=== PATIENT | male | born 1975 | race Caucasian/White ===

== ENCOUNTER 2023-11-24 02:42 | Emergency (ER) | payer OTHER, SELFPAY ==
[2023-11-24 02:42] VITALS: BP 175/106; PULSE 94; RESP 16; TEMP 36.6; O2SAT 99; BMI 27.3
--- NOTE | 2023-11-24 02:58 | ED.VIS.BACK ---
HPI History of Present Illness Chief Complaint: Back Informant: patient and EMS Narrative Narrative: Patient is brought in by EMS after a syncopal episode. Patient states for the past 4 to 5 days, he has been having pain in his left low back/hip/buttock area, radiating into his left thigh. It started gradually the day after he did a workout involving push-ups, pull-ups, sit ups. He has had some of this pain in the past but it has gotten gradually severe over the last several days, worse than it had been in the past when he did have it then. He states in the last couple days he has noticed that sitting is much worse than standing or walking. He denies any numbness or weakness in his legs. He has never had an MRI or other imaging for pain like this. Tonight the pain was severe, he was starting to sweat while he was lying in bed because it was hurting so bad despite taking some Tylenol, so he got up to splash some water on his face because of the sweating, he started feeling lightheaded and passed out onto the floor without injury. His was scared and called 911, so now he is here. He denies having any prodromal symptoms other than lightheadedness; no abdominal pain, chest pain, shortness of breath, headache, or focal neurologic symptoms. He states his pre-existing back, hip, thigh pain and is there now as it was before and he feels okay otherwise. He also states in the last several days he has had small amounts of bright red blood per rectum at the end of bowel movements without any abdominal discomfort or rectal pain or feeling of an obvious hemorrhoid although he has had those in the past that is because of bleeding like this. For that he is and he avoided taking ibuprofen tonight. [facility] Medical History no medical history no medical history Home Medications esomeprazole magnesium 20 mg capsule,delayed release (Nexium) 20 mg PO DAILY 11/24/23 [History Last Taken Unknown] hydrocodone-acetaminophen 5-325mg 5mg-325mg 1 tab PO Q6H PRN PRN Pain 3 days #10 TABLETS 11/24/23 [Rx Last Taken Unknown] prednisone 20 mg tablet 40 mg (2 x 20 mg) PO DAILY #10 TABLETS 11/24/23 [Rx Last Taken Unknown] Allergy/AdvReac Type Severity Reaction Status Date / Time No Known Allergies Allergy Verified 11/24/23 02:56 Social History Smoking Status: Never smoker ROS ROS ED Constitutional Constitutional ED: Denies chills, fever(s) or sweats Eyes Eyes: Denies change in vision or diplopia ENT ENT ED: Denies rhinorrhea or sore throat Cardiovascular Cardiovascular: Reports lightheadedness and syncope; Denies chest pain, palpitations or racing heartbeat Respiratory/Chest Respiratory/Chest: Denies dyspnea or dyspnea on exertion Gastrointestinal Gastrointestinal: Reports hematochezia; Denies abdominal pain, constipation, fecal incontinence, melena, nausea or vomiting Genitourinary Genitourinary ED: Reports other Details: no urinary retention ; Denies abdominal discomfort or urinary incontinence Musculoskeletal Musculoskeletal: Reports as per HPI and back pain; Denies neck pain Integumentary Denies rash or wounds Neurologic Neurologic: Denies headache(s), paresthesias or weakness EXAM Physical Exam Const Vital Signs: 11/24/23 02:42 Temperature 97.8 F Temperature Source Temporal Pulse Rate 94 Respiratory Rate 16 Blood Pressure 175/106 H Blood Pressure Mean 129 Pulse Ox 99 Oxygen Delivery Method Room Air Positive well nourished and well developed Constitutional Narrative: Well-appearing in no distress General Appearance ED: well developed and NAD HEENT Reports moist mucous membranes Negative for trauma or tenderness Eyes PERRL and EOMs intact bilaterally Neck full ROM and supple Resp normal respiratory effort and clear to auscultation bilaterally Cardio regular rate and regular rhythm Rate: Negative for tachycardic GI normal to inspection, nondistended, normoactive bowel sounds, soft to palpation and non-tender Back/Spine normal to inspection Back/Spine Narrative: No midline or paraspinal back tenderness but he is tender in the area of the sciatic notch/piriformis on the left only. Left lower extremity ipsilateral straight leg raise is equivocal, causing pain to about the knee. Cross leg straight leg raise is negative. General Back: Negative for CVA tenderness Lumbar Spine / Lower Back: Negative for lumbar spinal tenderness Extremity normal to inspection, full ROM and no pedal edema Neuro oriented x3 and no sensory deficits noted Sensorium / Orientation: alert Motor Exam: strength 5/5 throughout and clonus absent Deep Tendon Reflexes: Rt Patellar (L4): 2+, Lt Patellar (L4): 2+, Rt Ankle (S1): 2+ and Lt Ankle (S1): 2+ Deep Tendon Reflexes Back: Rt Patellar (L4): 2+, Lt Patellar (L4): 2+, Rt Ankle (S1): 2+ and Lt Ankle (S1): 2+ Plantar Reflex: Downgoing: bilateral Psych mental status grossly normal and thought process normal Skin no rashes or lesions noted and no wounds MDM MDM MDM Narrative Medical decision making narrative: Given the syncopal episode an EKG was obtained and it is normal on my interpretation. Given the recent minor rectal bleeding he describes, we obtained some labs including CBC and BMP to evaluate for the possibility of anemia and/or GI bleeding that could have been linked to the syncopal episode, those are normal as well. He has not been constipated or straining lately, but he has had small hemorrhoids in the past that have caused bleeding like he experienced which is compatible with hemorrhoids, internal or external. He also states he has had a prior syncopal episode preceded by lightheadedness and no other prodromal symptoms. This sounds more like a vagal episode to me, probably caused by the pain he was having and he is in agreement. I think this is a relatively low risk syncope. He is not tachycardic, or hypoxemic, nor does he of signs or symptoms of a DVT, so I do not think he needs to be evaluated further for PE here. Furthermore his PERC score is 0 ruling that out. No emergent radiography is indicated given that he has no bony tenderness or midline pain. A disc due to his exercising several days ago could have been bulging or a torn annulus, or other reason for sciatica in his lumbar spine, piriformis syndrome or other musculoskeletal etiologies such as SI dysfunction are also in the differential diagnosis. I think it would be reasonable to treat his pain here which we did and put him on a short course of steroids and follow-up with his doctor is comfortable with that plan and ambulatory without symptoms here. arrived later and had a lot of questions which I answered at the bedside, and also added that he had some shaking right after passing out and hitting the floor that she witnessed, and then he woke up short time afterwards. Sounds like his arms were shaking. It sounds more like myoclonic jerking related to a syncopal episode rather than a seizure. There was no postictal period. We talked about that at length. He has no history of seizures. Furthermore when he had a syncopal episode several years ago, that was dubbed as a likely vasovagal reaction as well. 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 At this time he has no signs or symptoms of Lyme carditis and this syncopal episode did not occur totally randomly, he had prodromal severe pain which I think was related which I explained to them. I do recommend following up and if he was supposed to have an outpatient echocardiogram he should probably still have that done. Also, I offered a prescription for Proctofoam HC if he wanted to try to treat internal hemorrhoids empirically but he declines at this time and states he will see how this goes as he has had this before. Lab Data Attestation: I reviewed the patient's lab results. Labs: Laboratory Results - last 24 hr 11/24/23 03:15 WBC 7.3 RBC 4.92 Hgb 14.7 Hct 45.5 MCV 92.5 MCH 29.9 MCHC 32.3 RDW Std Deviation 41.8 RDW Coeff of Lynnette 12.1 Plt Count 233 MPV 10.1 Immature Gran % (Auto) 0.100 Neut % (Auto) 59.0 Lymph % (Auto) 30.3 Garrard % (Auto) 8.6 Eos % (Auto) 1.2 Baso % (Auto) 0.8 Absolute Neuts (auto) 4.3 Absolute Lymphs (auto) 2.20 Nucleated RBC % 0 Sodium 140 Potassium 3.6 Chloride 105 Carbon Dioxide 28.0 Anion Gap 7 BUN 22 H Creatinine 0.97 Estim Creat Clear Calc 108.28 Est GFR (MDRD) Af Amer 106 Est GFR (MDRD) Non-Af 88 BUN/Creatinine Ratio 22.7 H Glucose 129 H Calcium 8.7 Rhythm Strip Rhythm Strip: Sinus Rhythm Rate: 90 Ectopy: None EKG Initial EKG: Attestation: I personally reviewed and interpreted this EKG as follows: Interpretation: Sinus Rhythm and No Acute Injury Pattern Comments: Normal EKG Discharge Plan Triage Chief Complaint: Back ED Provider: Jonathan Reddy Dx/Rx/DC Orders Clinical Impression: Vasovagal syncope, Acute left-sided back pain with sciatica, Rectal bleeding Instructions: Understanding Vasovagal Syncope, ED Sciatica Prescriptions: New hydrocodone-acetaminophen [hydrocodone-acetaminophen] 5-325 mg tablet 1 tab PO Q6H PRN PRN (Reason: Pain) 3 Days Qty: 10 0RF prednisone 20 mg tablet 40 mg PO DAILY Qty: 10 0RF No Action esomeprazole magnesium [Nexium] 20 mg capsule,delayed release(DR/EC) 20 mg PO DAILY Primary Care Provider: Wilfredo Timmons Referrals: Wilfredo Timmons MD [Primary Care Provider] - As soon as possible (call for appt) Activity Restrictions/Additional Instructions: You can start the prescription steroid on the morning of 11/25 and she received a dose in the emergency department. A total safe dose of acetaminophen is 1000 mg every 6 hours for maximum of 4000 mg per 24-hour period. Disposition Disposition: Home, Self Care
[2023-11-24] MEDS: Morphine 4 MG/ML Syringe IV (03:06)
[2023-11-24] MEDS: Orphenadrine 60 MG/2 ML Ampul IV (03:06)
[2023-11-24] MEDS: 0.9% Normal Saline (500mL Bag) 500 ML 999 ML IV (03:09)
[2023-11-24 03:25] LABS: Absolute Neutrophil Count 4.3 X10^3/uL (2.0-7.7); Basophil# 0.06 X10^3/uL; Basophil% 0.8 % (0-1); Eosinophil# 0.09 X10^3/uL; Eosinophils% 1.2 % (0-5); Hematocrit 45.5 % (40-54); Hemoglobin 14.7 g/dL (13.0-16.5); Lymphocyte % 30.3 % (19-41); Mean Corp Hgb Conc 32.3 g/dL (32-36); Mean Corpuscular Hgb 29.9 pg (27.0-32.0); Mean Corpuscular Volume 92.5 fL (80-94); Mean Platelet Vol. 10.1 fl (6.2-12.0); Monocyte# 0.62 X10^3/uL; Monocyte% 8.6 % (0-10); NRBC Flagged by Analyzer 0 % (0-5); Neutrophil # 4.27 X10^3/uL (2.7-7.7); Platelet Count 233 K/mm3 (150-450); RBC Distribution Width CV 12.1 % (11.6-14.6); RBC Distribution Width SD 41.8 fl (35.1-43.9); Red Blood Count 4.92 M/mm3 (4.6-6.2); White Blood Count 7.3 K/mm3 (4.4-11.0)
[2023-11-24 03:39] LABS: Anion Gap 7 (5-15); BUN 22 mg/dL (7-18); BUN/Creat Ratio 22.7 RATIO (10-20); Calcium,Total 8.7 mg/dL (8.5-10.1); Chloride 105 mmol/L (98-107); Creatinine, Serum 0.97 mg/dL (0.70-1.30); EST Glomerular Filtration Rate 88 mL/min (>60); Est Glom Filt Rate - Afr Amer 106 mL/min (>60); Estimated Creatinine Clearance 108.28 ml/min; Glucose 129 mg/dL (74-106); Potassium 3.6 mmol/L (3.5-5.1); Sodium Level 140 mmol/L (136-145)
[2023-11-24] MEDS: MethylPREDNISolone 125 MG/2 ML Vial IV (04:31)
[2023-11-24 04:35] VITALS: BP 146/96; PULSE 73; RESP 17; O2SAT 99
== END 2023-11-24 04:38 | disposition home or self-care (01) ==
PROVIDERS: Emergency Provider Emergency Medicine; PCP Family Medicine; Visit Provider Emergency Medicine
DX: R55 Syncope and collapse (principal); K62.5 Hemorrhage of anus and rectum; M54.42 Lumbago with sciatica, left side
CPT/HCPCS: 80048; 85025; 93005; 96361; 96374; 96375; 99284